=== PATIENT | female | born 1985 | race Caucasian/White ===

== ENCOUNTER 2019-08-16 15:14 | Outpatient (REF) | payer BC, SELFPAY ==
[2019-08-19 11:11] LABS: HBs Antibody, Quant 86.4 mIU/mL (See Note); Hepatitis B Surface Ab Positive (See Note)
[2019-08-19 13:30] LABS: Mumps Antibody IgG Positive (See Note); Rubella IgG Ab (UVM) Positive (See Note); Varicella IgG Antibody Positive (See Note)
[2019-08-19 22:38] LABS: Measles (Rubeola), IgM Negative (Negative)
== END 2019-08-16 15:34 ==
LOC: NCHCN 15:14
PROVIDERS: PCP Registered Nurse; Visit Provider Registered Nurse
DX: Z00.00 Encounter for general adult medical examination without abnormal findings (principal); Z11.59 Encounter for screening for other viral diseases; Z01.84 Encounter for antibody response examination
CPT/HCPCS: 86706; 86765; 86787; 86735; 86762

== ENCOUNTER 2019-11-13 19:24 | Outpatient (REF) | payer BC, SELFPAY ==
[2019-11-16 18:28] LABS: SARS-CoV-2 RNA Undetected (Undetected); SARS-CoV-2 Specimen Source Nasopharynx
== END 2019-11-13 19:44 ==
LOC: NCHCN 19:24
PROVIDERS: PCP Registered Nurse; Visit Provider Registered Nurse
DX: Z20.828 Contact with and (suspected) exposure to other viral communicable diseases (principal)
CPT/HCPCS: U0003

== ENCOUNTER 2019-12-30 09:26 | Outpatient (REF) | payer BC, SELFPAY ==
[2020-01-02 15:28] LABS: Patient Race White; SARS-CoV-2 RNA Undetected (Undetected); SARS-CoV-2 Specimen Source Nasal
== END 2019-12-30 09:46 ==
LOC: NCHCN 09:26
PROVIDERS: PCP Registered Nurse; Visit Provider Registered Nurse
DX: Z20.828 Contact with and (suspected) exposure to other viral communicable diseases (principal)
CPT/HCPCS: U0003

== ENCOUNTER 2020-01-21 16:09 | Outpatient (REF) | payer BC, SELFPAY ==
[2020-01-26 15:27] LABS: Patient Race White; SARS-CoV-2 RNA Undetected (Undetected); SARS-CoV-2 Specimen Source Nasal
== END 2020-01-21 16:29 ==
LOC: LBN 16:09
PROVIDERS: PCP Registered Nurse; Visit Provider Registered Nurse
DX: Z20.828 Contact with and (suspected) exposure to other viral communicable diseases (principal)
CPT/HCPCS: U0003

== ENCOUNTER 2020-01-29 13:59 | Outpatient (REF) | payer BC, SELFPAY ==
[2020-02-03 16:42] LABS: SARS-CoV-2 RNA Undetected (Undetected); SARS-CoV-2 Specimen Source Nasal
== END 2020-01-29 14:19 ==
LOC: NCHCN 13:59
PROVIDERS: PCP Registered Nurse; Visit Provider Registered Nurse
DX: Z20.828 Contact with and (suspected) exposure to other viral communicable diseases (principal)
CPT/HCPCS: U0003

== ENCOUNTER 2020-12-24 15:03 | Outpatient (REF) | payer OTHER, SELFPAY ==
--- NOTE | 2020-12-24 13:45 | PAPFT_PTH ---
PATIENT: Mirna Soto LOC: [facility] U#:[id number] AGE/SX: 35/F ROOM: RE12/24/[address]: Keyla Miramontes : 1985 BED: DIS: 12/24/2020 SPEC #: [id number] RECD: 12/25/20 12:53 STATUS: CEDRIC RELilian #: [id number] MEKA: 12/24/20 13:[address]: Keyla Miramontes DEPT: [facility] Cytology RECD BY: Nelly Parker Tissues: 1 - CX/ENDOCX FOR PAP SMEARS Procedures: PAP THIN PREP/[facility] Screening HPV DNA PROBE Comments: [id number]
== END 2020-12-24 15:04 | disposition home or self-care (01) ==
LOC: NCHCN 15:03
PROVIDERS: PCP Registered Nurse; Visit Provider Registered Nurse
DX: Z12.4 Encounter for screening for malignant neoplasm of cervix (principal); Z11.51 Encounter for screening for human papillomavirus (HPV)
CPT/HCPCS: 88142; 87624

== ENCOUNTER 2021-12-29 19:18 | Outpatient (REF) | payer OTHER, SELFPAY ==
[2021-12-29 15:13] LABS: Abs Immature Grans 0.03 10^3/uL (0.0-0.06); Absolute Basophil Count 0.05 10^3/uL (0.0-0.2); Absolute Eosinophil Count 0.28 10^3/uL (0.0-0.7); Absolute Monocyte Count 0.52 10^3/uL (0.1-0.8); Basophils % 0.6; Eosinophils % 3.2; HCT 39.3 % (36.0-46.0); HGB 13.2 g/dL (11.2-15.7); Immature Grans % 0.3; Lymphocytes % 30.4; MCHC 33.6 % (32.0-36.0); MCV 83 fL (80-95); MPV 10.7 fL (8.0-11.0); Monocytes % 5.9; Neutrophils % 59.6; Platelet Count 232 10^3/uL (130-400); RBC 4.72 10^6/uL (3.93-5.22); RDW 12.3 % (11.7-14.6); RDW-SD 37.6 fL; WBC 8.88 10^3/uL (4.4-10.8)
[2021-12-29 15:31] LABS: ALT 25 U/L (14-59); AST 21 U/L (15-37); Albumin 3.9 g/dL (3.4-5.0); Alkaline Phosphatase 72 U/L (46-116); Anion Gap 10.2 mmol/L (3-11); BUN 13 mg/dL (7-18); Bilirubin, Total 0.3 mg/dL (0.2-1.0); CO2 23.8 mmol/L (21.0-32.0); CREATININE 0.7 mg/dL (0.55-1.02); Calculated LDL 118 mg/dL (<100); Chloride 103 mmol/L (98-107); Cholesterol 163 mg/dL (<200); Estimated GFR 115.59 (mL/min/1.73m2); Glucose 99 mg/dL (74-106); HDL Cholesterol 27 mg/dL (40-60); Potassium 4.1 mmol/L (3.5-5.1); Sodium 137 mmol/L (136-145); TSH 2.13 uIU/mL (0.36-3.74); Total Protein 7.4 g/dL (6.4-8.2); Triglyceride 93 mg/dL (<150)
== END 2021-12-29 19:19 | disposition home or self-care (01) ==
LOC: NCHCN 19:18
PROVIDERS: PCP Registered Nurse; Visit Provider Registered Nurse
DX: Z00.00 Encounter for general adult medical examination without abnormal findings (principal); R73.9 Hyperglycemia, unspecified; E66.8 Other obesity; Z13.29 Encounter for screening for other suspected endocrine disorder
CPT/HCPCS: 80053; 80061; 84443; 85025